=== PATIENT | male | born 1940 | race Caucasian/White ===

== ENCOUNTER 2017-01-27 09:49 | Emergency (ER) | payer MEDICARE ==
[2017-01-27 11:09] LABS: URINE BILIRUBIN NEGATIVE (NEGATIVE); URINE BLOOD NEGATIVE (NEGATIVE); URINE GLUCOSE (UA) 1+ (NEGATIVE); URINE LEUKOCYTE ESTERASE NEGATIVE (NEGATIVE); URINE NITRITE NEGATIVE (NEGATIVE); URINE PROTEIN TRACE (NEGATIVE); URINE UROBILINOGEN NORMAL (0-1 mg/dl)
[2017-01-27 11:12] LABS: URINE APPEARANCE CLEAR; URINE COLOR YELLOW
[2017-01-27 11:37] LABS: ABSOLUTE NEUTROPHIL COUNT 7.4 K/mm3 (1.8-7.7); BASO % 0.4 % (0.2-1.0); EOS # 0.1 (0.0-0.5); HEMATOCRIT 35.9 % (32.0-52.0); HEMOGLOBIN 11.3 gm/l (14.0-18.0); IMM NEUT% 0.3 % (0-1); LYMPH # 1.8 (1.0-4.8); LYMPH % 18.4 % (15-45); MEAN CELL VOLUME 91.3 fl (80.0-94.0); MEAN CORPUSCULAR HEMOGLOBIN 28.8 pg (27.0-31.0); MEAN CORPUSCULAR HGB CONC 31.5 g/dl (33.0-37.0); MEAN PLATELET VOLUME 10.7 fl (7.4-10.4); MONO # 0.6 (0.0-0.8); MONO % 5.7 % (4-12); NEUT % 74.2 % (43-75); PLATELET COUNT 245 K/mm3 (130-400); RED CELL DISTRIBUTION WIDTH 14.6 % (11.5-14.5)
[2017-01-27 12:07] LABS: ALB/GLOB RATIO 1.2 (>1.0); ALBUMIN 3.5 gm/dL (3.5-5.7); MAGNESIUM 1.7 mg/dL (1.9-2.7)
== END 2017-01-27 13:27 | disposition home or self-care (01) ==
LOC: ED 09:49
DX: E11.649 Type 2 diabetes mellitus with hypoglycemia without coma (principal); I10 Essential (primary) hypertension; Z79.84 Long term (current) use of oral hypoglycemic drugs